=== PATIENT | female | born 1985 | race Caucasian/White ===

== ENCOUNTER 2017-01-25 23:38 | Emergency (ER) | payer OTHER ==
--- NOTE | ~2017-01-25 | CR72 ---
[facility] A Service of [facility] RADIOLOGY TEXT RESULTS PATIENT: GERSON MATA LOCATION: [facility] : 87 UNIT #: [id number] AGE: [address]: Aster Freitas APRN SEX: F ORDER DR: [id number] [facility] [address] [place], [place] [address] [id number] MR#: [id number] Acc #: [id number] NAME: GERSON MATA : 1985 SEX: F STUDY DATE/TIME: 01/26/2017 1:52 UNIT: [facility] ROOM: STUDY DESCRIPTION: CR Chest Single View Portable Attending Physician: Aster Freitas A.P.R.N. Ordering Physician: Aster Freitas A.P.R.N. Primary Care Physician: Jhonny Aguirre M.D. MEDICAL IMAGING REPORT This report is preliminary unless electronic signature is present EXAM Chest x-ray, 01/26/2017. HISTORY 31-year-old female in ED complaining of a 5-day history of chest tightness. TECHNIQUE AP portable chest x-ray. FINDINGS The examination is negative. The lungs are expanded and clear. No evidence of pulmonary infiltrate, pneumothorax, or pleural effusion. Heart size and pulmonary vascularity are normal. IMPRESSION Negative chest. Dictated by... Sean Farrar M.D. THIS IS AN ELECTRONICALLY VERIFIED REPORT Sean Farrar M.D. at 01/26/2017 10:03 PM JIMMIEW/billy TD: 01/26/2017 10:45 JOB #: [id number] MEDICAL IMAGING REPORT Page 1 of 1 COPY
--- NOTE | ~2017-01-25 | EKG ---
PATIENT: GERSON MATA UNIT #: [id number] Ventricular Rate: 85 BPM Atrial Rate: 85 BPM P-R Interval: 148 ms QRS Duration: 76 ms Q-T Interval: 366 ms QTC Calculation(Bezet): 435 ms P [place]: 31 degrees Calculated R [place]: 10 degrees Diagnosis Line: Normal sinus rhythm Diagnosis Line: Normal ECG Diagnosis Line: No previous ECGs available Diagnosis Line: Confirmed by LUZ ST MD ([id number]) on 01/26/2017 Diagnosis Line: 11:05:08 PM INTERPRETING MD: ALMA ROSA CERDA
[~2017-01-25 23:38] MED LIST: BACLOFEN10 MG PO; MEDROL PO; ULTRAM PO
[2017-01-26 01:59] LABS: URINE SOURCE CLEAN CATCH
[2017-01-26 02:05] LABS: URINE APPEARANCE CLEAR; URINE BILIRUBIN NEG (NEG); URINE BLOOD NEG (NEG); URINE COLOR YELLOW; URINE GLUCOSE NEG (NEG); URINE KETONE NEG (NEG); URINE LEUKOCYTE ESTERASE TRACE (NEG); URINE NITRATE NEG (NEG); URINE PROTEIN NEG (NEG); URINE SPECIFIC GRAVITY 1.019 (1.003-1.035); URINE UROBILINOGEN 0.2 MG/DL (NEG)
[2017-01-26 02:07] LABS: CULTURE INDICATED? YES; URINE BACTERIA AUWI 1+ (NEGATIVE); URINE SQUAMOUS EPITHELIAL CELL FEW /[HPF]
[2017-01-26 02:50] LABS: POC - CKMB <1.0 ng/mL (0.0-7.9); POC - TROPONIN <0.05 ng/mL (<=0.05)
[2017-01-26 02:53] LABS: BASOPHIL% 0.5 % (0-2.5); EOSINOPHIL# 0.1 X10e3 (0-0.7); EOSINOPHIL% 1.2 % (0.0-7.0); HEMOGLOBIN 12.7 gm/dL (12.0-16.0); LYMPHOCYTE# 3.8 X10e3 (1.0-3.5); LYMPHOCYTE% 44.8 % (17.0-45.0); MEAN CORPUSCULAR HEMOGLOBIN 30.9 PG (28-34); MEAN CORPUSCULAR HGB CONC 34.3 g/dL (30-36); MEAN PLATELET VOLUME 8.6 FL (6.5-11.5); MONOCYTE# 0.5 X10e3 (0-1.0); MONOCYTE% 5.6 % (3.0-12.0); NEUTROPHIL# 4.1 X10e3 (1.5-7.1); NEUTROPHIL% 47.9 % (40-75); PLATELET COUNT 269 X10e3 (140-420); RED BLOOD COUNT 4.11 X10e (3.90-5.30); WHITE BLOOD COUNT 8.5 X10e3 (4.0-10.5)
[2017-01-26 02:54] LABS: DIFF IND NO
[2017-01-26 03:11] LABS: INR 1.1; PROTHROMBIN TIME (PATIENT) 11.7 SECONDS (10.0-11.7)
[2017-01-26 03:24] LABS: ALBUMIN SERUM 4.4 g/dL (3.5-5.0); BILIRUBIN, DIRECT 0.1 mg/dL (0.0-0.2); BILIRUBIN,INDIRECT 0.8 mg/dL (0.0-0.9); BILIRUBIN,TOTAL 0.9 mg/dL (0.2-2.0); BUN/CREATININE RATIO 21.42; CALCIUM SERUM 9.1 mg/dL (8.4-10.2); CREATININE SERUM 0.7 mg/dL (0.6-1.4); GLOM FILT RATE Estimated 116.3 mL/min (>60); POTASSIUM 3.3 mmol/L (3.5-5.1); PROTEIN TOTAL SERUM 7.6 g/dL (6.0-8.3)
== END 2017-01-26 03:48 | disposition home or self-care (01) ==
LOC: CED 23:38
PROVIDERS: Nurse Practitioner
DX: R07.9 Chest pain, unspecified (principal); F41.9 Anxiety disorder, unspecified
CPT/HCPCS: 36415; 71010; 80048; 80076; 81003; 82553; 83690; 84484; 84703; 85025; 85610; 85730; 87086; 93005; 99285